=== PATIENT | female | born 1960 | race Caucasian/White ===

== ENCOUNTER 2016-06-08 12:36 | Inpatient (IN) | payer OTHER ==
[~2016-06-08] VITALS: Ht 167.6 cm; Wt 62.1 kg
[2016-06-08] MEDS ORDERED: DILAUDID 1 MG/ML AMP ONE ×2 (15:14→16:24)
[2016-06-08] MEDS ORDERED: PROMETHAZINE 25 MG/ML VIAL ONE (15:14)
[2016-06-08] MEDS ORDERED: SODIUM CHLORIDE 0.9% 2,000 ML ONE (15:14)
[2016-06-08] MEDS ORDERED: SODIUM CHLORIDE 0.9% 50 ML IV ONE (15:14)
[2016-06-08] MEDS ORDERED: LABETALOL 100 MG/20 ML VIAL ONE (15:43)
[2016-06-08] MEDS ORDERED: MAG HYDROX 30 ML UDC PO PRN (15:55)
[2016-06-08] MEDS ORDERED: OXYCODONE 5 MG TAB PO PRN ×2 (15:55)
[2016-06-08] MEDS ORDERED: GLUCAGON 1 MG VIAL IM PRN (15:55)
[2016-06-08] MEDS ORDERED: DILAUDID 1 MG/ML AMP IV PRN (15:55)
[2016-06-08] MEDS ORDERED: BISACODYL 10 MG SUPP RECTAL PRN (15:55)
[2016-06-08] MEDS ORDERED: DEXTROSE 50% SYRINGE 50 ML IV PRN (15:55)
[2016-06-08] MEDS ORDERED: BISACODYL EC 5 MG TAB PO PRN (15:55)
[2016-06-08] MEDS ORDERED: ALU/MAG/SIM 30 ML UDC PO PRN (15:55)
[2016-06-08] MEDS ORDERED: ACETAMINOPHEN 325 MG TAB PO PRN (15:55)
[2016-06-08] MEDS ORDERED: cloNIDine 0.2 MG/24H TDSY TRANSDERM SCH (15:55)
[2016-06-08] MEDS ORDERED: SALINE FLUSH 10 ML FLUSH PRN (15:55)
[2016-06-08] MEDS ORDERED: ONDANSETRON 4 MG VIAL IV PRN (15:55)
[2016-06-08] MEDS ORDERED: PROMETHAZINE 25 MG/ML VIAL IV PRN (16:30)
[2016-06-08] MEDS: NICOTINE 21 MG/24 HR TRANSDERM SCH (16:30)
[2016-06-08] MEDS ORDERED: LABETALOL 100 MG/20 ML VIAL IV PUSH PRN (16:30)
[2016-06-08] MEDS: ENOXAPARIN 40 MG/0.4 ML SYR SUBQ SCH (17:06)
[2016-06-08 17:18] VITALS: BP_SYST 188; RESP 18; TEMP 97.4
[2016-06-08] MEDS: DILAUDID 1 MG/ML AMP IV PRN ×3 (17:19→22:16)
[2016-06-08 17:23] VITALS: Ht 167.6 cm; Wt 62.1 kg
[2016-06-08] MEDS: FAMOTIDINE 20 MG INJ IV SCH (18:56)
[2016-06-08] MEDS: SALINE FLUSH 10 ML FLUSH SCH (19:46)
[2016-06-08 20:43] VITALS: BP_SYST 175; RESP 20; TEMP 98.5
[2016-06-08] MEDS: PROMETHAZINE 25 MG/ML VIAL IV PRN (20:58)
[2016-06-08] MEDS: LACT RINGERS 1,000 ML IV SCH (22:47)
[2016-06-08 23:32] VITALS: BP_SYST 156; RESP 16; TEMP 99.6
[2016-06-09] VITALS (8 sets, daily range): BP systolic 151–207; RESP 16–18; TEMP 97.9–98.7
[2016-06-09] MEDS: DILAUDID 1 MG/ML AMP IV PRN ×12 (00:07→22:01)
[2016-06-09] MEDS: PROMETHAZINE 25 MG/ML VIAL IV PRN ×7 (00:27→23:46)
[2016-06-09] MEDS: LACT RINGERS 1,000 ML IV SCH (04:19)
[2016-06-09] MEDS: SODIUM CHLORIDE 0.9% FLUSH BAG 500 ML IV SCH (04:25)
[2016-06-09] MEDS ORDERED: PIPERACIL/TAZO 3.375GM/50ML 50 ML IV SCH (06:00)
[2016-06-09] MEDS: FAMOTIDINE 20 MG INJ IV SCH ×2 (08:03→22:00)
[2016-06-09] MEDS: NICOTINE 21 MG/24 HR TRANSDERM SCH (08:03)
[2016-06-09] MEDS: SALINE FLUSH 10 ML FLUSH SCH ×2 (08:04→19:53)
[2016-06-09] MEDS: ENOXAPARIN 40 MG/0.4 ML SYR SUBQ SCH (08:04)
[2016-06-09] MEDS ORDERED: SODIUM CHLORIDE 0.9% 1,000 ML IV ONE (09:45)
[2016-06-09] MEDS: MAGNESIUM SULF 1 GM/100 ML 100 ML IV SCH ×2 (10:03→10:30)
[2016-06-09] MEDS: SODIUM CHLORIDE 0.9% 1,000 ML IV SCH (15:43)
[2016-06-09] MEDS ORDERED: DILAUDID 1 MG/ML AMP IV ONE (23:45)
[2016-06-10] MEDS: SODIUM CHLORIDE 0.9% 1,000 ML IV SCH ×3 (00:45→20:09)
[2016-06-10] MEDS: DILAUDID 1 MG/ML AMP IV PRN ×11 (01:47→22:06)
[2016-06-10] MEDS: SODIUM CHLORIDE 0.9% FLUSH BAG 500 ML IV SCH (02:09)
[2016-06-10 03:12] VITALS: BP_SYST 168; RESP 18; TEMP 98.9
[2016-06-10] MEDS: PROMETHAZINE 25 MG/ML VIAL IV PRN ×5 (03:35→20:08)
[2016-06-10] MEDS: POTASSIUM CHLORIDE PREMIX 50 ML IV SCH ×4 (04:35→08:21)
[2016-06-10] MEDS: SALINE FLUSH 10 ML FLUSH SCH ×2 (06:37→20:07)
[2016-06-10 07:13] VITALS: BP_SYST 179; RESP 18; TEMP 97.8
[2016-06-10] MEDS ORDERED: POTASSIUM CHLORIDE VIAL 10 MEQ, LIDOCAINE 1% 1 ML in SODIUM CHLORIDE 0.9% 50 ML IV ONE (07:50)
[2016-06-10] MEDS: ENOXAPARIN 40 MG/0.4 ML SYR SUBQ SCH (09:43)
[2016-06-10] MEDS: FAMOTIDINE 20 MG INJ IV SCH ×2 (09:44→20:08)
[2016-06-10] MEDS ORDERED: SODIUM CHLORIDE 0.9% 1,000 ML IV ONE (09:50)
[2016-06-10] MEDS: NICOTINE 21 MG/24 HR TRANSDERM SCH (10:03)
[2016-06-10] MEDS: METOPROLOL XL 50 MG TAB PO SCH (11:59)
[2016-06-10] MEDS ORDERED: OMNIPAQUE 240 MG/ML, 50 ML PO SCH (13:40)
[2016-06-10] MEDS ORDERED: BARIUM 450 ML ORAL SUSP PO ONE ×2 (13:45)
[2016-06-10 15:20] VITALS: BP_SYST 131; RESP 16; TEMP 98.2
[2016-06-10] MEDS: KCL CR 10 MEQ CAP PO SCH ×2 (16:03→20:08)
[2016-06-10 19:26] VITALS: BP_SYST 146; RESP 18; TEMP 97.8
[2016-06-10 22:51] VITALS: BP_SYST 103; RESP 18; TEMP 97.8
[2016-06-11] VITALS (7 sets, daily range): BP systolic 138–164; RESP 16–20; TEMP 97.8–98.1
[2016-06-11] MEDS: PROMETHAZINE 25 MG/ML VIAL IV PRN ×6 (00:07→20:21)
[2016-06-11] MEDS: SODIUM CHLORIDE 0.9% 1,000 ML IV SCH (02:23)
[2016-06-11] MEDS: DILAUDID 1 MG/ML AMP IV PRN ×11 (02:23→22:23)
[2016-06-11] MEDS: SODIUM CHLORIDE 0.9% FLUSH BAG 500 ML IV SCH ×2 (04:34)
[2016-06-11] MEDS: SALINE FLUSH 10 ML FLUSH SCH ×2 (07:28→19:32)
[2016-06-11] MEDS ORDERED: POTASSIUM PHOSPHATE 45 MMOL in SODIUM CHLORIDE 0.9% 500 ML IV ONE (08:10)
[2016-06-11] MEDS: FAMOTIDINE 20 MG INJ IV SCH ×2 (08:32→19:32)
[2016-06-11] MEDS: ENOXAPARIN 40 MG/0.4 ML SYR SUBQ SCH (08:37)
[2016-06-11] MEDS: NICOTINE 21 MG/24 HR TRANSDERM SCH (08:37)
[2016-06-11] MEDS: KCL CR 10 MEQ CAP PO SCH ×3 (08:37→19:33)
[2016-06-11] MEDS: METOPROLOL XL 50 MG TAB PO SCH (08:37)
[2016-06-12] VITALS (10 sets, daily range): BP systolic 166–209; RESP 16–18; TEMP 98.2–99.7
[2016-06-12] MEDS: DILAUDID 1 MG/ML AMP IV PRN ×11 (00:44→22:22)
[2016-06-12] MEDS: PROMETHAZINE 25 MG/ML VIAL IV PRN ×6 (00:44→22:21)
[2016-06-12] MEDS: SODIUM CHLORIDE 0.9% FLUSH BAG 500 ML IV SCH ×2 (05:07)
[2016-06-12] MEDS: SALINE FLUSH 10 ML FLUSH SCH ×2 (08:41→19:51)
[2016-06-12] MEDS: FAMOTIDINE 20 MG INJ IV SCH ×2 (08:41→19:50)
[2016-06-12] MEDS: ENOXAPARIN 40 MG/0.4 ML SYR SUBQ SCH (08:42)
[2016-06-12] MEDS: METOPROLOL XL 50 MG TAB PO SCH (08:42)
[2016-06-12] MEDS: NICOTINE 21 MG/24 HR TRANSDERM SCH (08:43)
[2016-06-12] MEDS: KCL CR 10 MEQ CAP PO SCH ×3 (08:43→19:51)
[2016-06-12] MEDS: SODIUM CHLORIDE 0.9% 1,000 ML IV SCH (10:50)
[2016-06-12] MEDS ORDERED: CALCIUM CHLORIDE 2,000 MG in SODIUM CHLORIDE 0.9% 100 ML IV ONE (11:40)
[2016-06-12] MEDS: LORAZEPAM 2 MG/ML VIAL IV PRN ×2 (12:18→20:01)
[2016-06-12] MEDS ORDERED: POTASSIUM PHOSPHATE 30 MMOL in SODIUM CHLORIDE 0.9% 250 ML IV ONE (17:35)
[2016-06-13] MEDS: DILAUDID 1 MG/ML AMP IV PRN ×11 (00:46→22:52)
[2016-06-13] MEDS: LORAZEPAM 2 MG/ML VIAL IV PRN (00:46)
[2016-06-13] MEDS: PROMETHAZINE 25 MG/ML VIAL IV PRN ×3 (02:26→10:22)
[2016-06-13 04:18] VITALS: BP_SYST 176; TEMP 98.5
[2016-06-13 04:19] VITALS: RESP 16
[2016-06-13] MEDS: SODIUM CHLORIDE 0.9% FLUSH BAG 500 ML IV SCH ×2 (05:45)
[2016-06-13] MEDS: SALINE FLUSH 10 ML FLUSH SCH ×2 (07:34→20:55)
[2016-06-13 07:43] VITALS: BP_SYST 172; RESP 16; TEMP 98.6
[2016-06-13] MEDS: KCL CR 10 MEQ CAP PO SCH ×3 (08:02→20:50)
[2016-06-13] MEDS: METOPROLOL XL 50 MG TAB PO SCH (08:02)
[2016-06-13] MEDS: FAMOTIDINE 20 MG INJ IV SCH ×2 (08:03→20:56)
[2016-06-13] MEDS: NICOTINE 21 MG/24 HR TRANSDERM SCH (08:04)
[2016-06-13] MEDS: ENOXAPARIN 40 MG/0.4 ML SYR SUBQ SCH (08:04)
[2016-06-13] MEDS ORDERED: CALCIUM CHLORIDE 1,000 MG in SODIUM CHLORIDE 0.9% 100 ML IV ONE (10:50)
[2016-06-13 11:16] VITALS: BP_SYST 164; RESP 16; TEMP 98.2
[2016-06-13] MEDS: ONDANSETRON 4 MG VIAL IV PUSH PRN ×3 (14:35→22:54)
[2016-06-13 15:45] VITALS: BP_SYST 185; RESP 18; TEMP 98.5
[2016-06-13] MEDS: SODIUM CHLORIDE 0.9% 1,000 ML IV SCH ×2 (16:43→23:41)
[2016-06-13 19:58] VITALS: BP_SYST 121; RESP 18; TEMP 97.8
[2016-06-14 00:08] VITALS: BP_SYST 132; RESP 18; TEMP 98.2
[2016-06-14] MEDS: LORAZEPAM 2 MG/ML VIAL IV PRN (00:11)
[2016-06-14] MEDS: DILAUDID 1 MG/ML AMP IV PRN ×4 (02:17→10:00)
[2016-06-14 04:22] VITALS: BP_SYST 140; RESP 20; TEMP 98.5
[2016-06-14] MEDS: SODIUM CHLORIDE 0.9% FLUSH BAG 500 ML IV SCH ×2 (04:58)
[2016-06-14] MEDS: ONDANSETRON 4 MG VIAL IV PUSH PRN ×2 (05:30→10:00)
[2016-06-14 07:25] VITALS: BP_SYST 114; RESP 18; TEMP 98.1
[2016-06-14] MEDS: NICOTINE 21 MG/24 HR TRANSDERM SCH (08:00)
[2016-06-14] MEDS: SALINE FLUSH 10 ML FLUSH SCH (09:32)
[2016-06-14] MEDS: FAMOTIDINE 20 MG INJ IV SCH (09:33)
[2016-06-14] MEDS: METOPROLOL XL 50 MG TAB PO SCH (09:35)
[2016-06-14] MEDS: KCL CR 10 MEQ CAP PO SCH (09:35)
[2016-06-14] MEDS: ENOXAPARIN 40 MG/0.4 ML SYR SUBQ SCH (09:37)
[2016-06-14 11:58] VITALS: BP_SYST 119; RESP 18; TEMP 98
[2016-06-14 13:50] VITALS: BP_SYST 119; RESP 18; TEMP 98
== END 2016-06-14 15:07 | disposition home or self-care (01) | DRG 439 ==
LOC: ENRESERVDT → ENRESERVTM → ER 12:36 → EMR 15:53 → ENPENDDIS 15:53 → 5THE 16:53 → 4THE 06-13 12:20
PROVIDERS: ADMIT Family Medicine; ATTEND Family Medicine
CPT/HCPCS: 36415; 36569; 74020; 74150; 76705; 76937; 80048; 80053; 81001; 82150; 82947; 83605; 83690; 83735; 84100; 84132; 84484; 85025; 87040; 87088; 93005; 94799; 96361; 96365; 96375; 96376; 99223; 99233